=== PATIENT | female | born 1945 | race Caucasian/White ===

== ENCOUNTER 2017-09-29 16:05 | Emergency (ER) | payer MEDICARE, MEDICAID ==
[2017-09-29 16:05] VITALS: BMI 40.6
[2017-09-29 16:40] VITALS: TEMP 98.2
[2017-09-29 17:05] VITALS: RESP 18
--- NOTE | 2017-09-29 18:22 | ED PDOC ---
Arrival/HPI - General Chief Complaint: Female Genitourinary Time Seen by Provider: 09/29/17 17:03 Historian: Patient, Family, Media Analyst (son), Other - History of Present Illness Narrative History of Present Illness (Text): pt with 2wks ago right knee surgery, and now with urinary burning/discomfort with mild blood in urine but not in vagina and without vaginal discharge. Not sexually active. otherwise without any nausea/vomiting/headache/dizziness/ difficulty breathing/chest pain/abdomen pain/numbness/tingling. at baseline with right lower leg without redness or calf discomfort or unusual change in swelling. 09/29/17 18:19 Past Medical History - Provider Review Nursing Documentation Reviewed: Yes - Travel History Have you recently traveled outside [place] w/in the past 3 mons?: No - Infectious Disease Hx of Infectious Diseases: None - Reproductive Menopause: Yes - Cardiac Hx Hypertension: Yes - Pulmonary Hx Respiratory Disorders: No - HEENT Hx HEENT Disorder: No - Renal Hx Renal Disorder: No - Endocrine/Metabolic Hx Endocrine Disorders: No - Hematological/Oncological Hx Blood Disorders: No - Integumentary Hx Dermatological Disorder: No - Musculoskeletal/Rheumatological Hx Arthritis: Yes Hx Falls: No - Gastrointestinal Hx Gastrointestinal Disorders: No - Genitourinary/Gynecological Hx Genitourinary Disorders: No - Psychiatric Hx Psychophysiologic Disorder: No Hx Substance Use: No - Surgical History Hx Cholecystectomy: Yes Hx Hysterectomy: Yes - Anesthesia Hx Anesthesia: No Hx Anesthesia Reactions: No Hx Malignant Hyperthermia: No - Suicidal Assessment Feels Threatened In Home Enviroment: No Family/Social History - Physician Review Nursing Documentation Reviewed: Yes Family/Social History: No Known Family HX Smoking Status: Unknown If Ever Smoked Hx Alcohol Use: Yes Hx Substance Use: No Hx Substance Use Treatment: No Allergies/Home Meds Allergies/Adverse Reactions: Allergies No Known Allergies Allergy (Unverified 11/04/14 19:37) Home Medications: Home Meds Medication Instructions Recorded Confirmed Aspirin [Aspirin] 81 mg PO DAILY 11/04/14 09/29/17 Ciprofloxacin [Cipro] 500 mg PO BID 09/29/17 09/29/17 Hctz 12.5 12.5 mg PO DAILY 09/29/17 09/29/17 Losartan Potassium [Cozaar] 100 mg PO DAILY 09/29/17 09/29/17 traMADol [Ultram] 50 mg PO PRN PRN 09/29/17 09/29/17 Review of Systems - Review of Systems Constitutional: Normal Eyes: Normal ENT: Normal Respiratory: Normal Cardiovascular: Normal Gastrointestinal: Normal Genitourinary Female: Dysuria, Frequency, Hematuria. absent: Normal, Urine Output Changes, Vaginal Bleeding, Vaginal Discharge, Other Musculoskeletal: Other (right knee s/p surgery) Skin: Normal Neurological: Normal Endocrine: Normal Hemo/Lymphatic: Normal Psychiatric: Normal Physical Exam Vital Signs Reviewed: Yes Vital Signs Temp Pulse Resp BP Pulse Ox 09/29/17 17:04 69 18 124/61 98 09/29/17 16:27 98.2 F 72 16 126/69 100 Temperature: Afebrile Blood Pressure: Hypertensive Pulse: Regular Respiratory Rate: Normal Appearance: Positive for: Well-Appearing, Non-Toxic, Comfortable Pain Distress: None Mental Status: Positive for: Alert and Oriented X 3 - Systems Exam Head: Present: Atraumatic, Normocephalic Pupils: Present: PERRL Extroacular Muscles: Present: EOMI Conjunctiva: Present: Normal Ears: Present: Normal Mouth: Present: Moist Mucous Membranes Pharnyx: Present: Normal Nose (External): Present: Atraumatic Nose (Internal): Present: Normal Inspection Neck: Present: Normal Range of Motion Respiratory/Chest: Present: Clear to Auscultation, Good Air Exchange Cardiovascular: Present: Regular Rate and Rhythm Breast/Axillary: No: Axillary Lymphad, Discoloration, Erythema, Fluctuance, Masses, Nipple Discharge, Other, Swelling, Symmetrical, Tender to Palpation Back: Present: Normal Inspection Upper Extremity: Present: Normal Inspection Lower Extremity: Present: Other (right lower leg knee with mild swelling wo erythema/fluctuance/crepitus, sutures c/d/i.) Neurological: Present: GCS=15, CN II-XII Intact, Speech Normal, Motor Func Grossly Intact Skin: Present: Warm Psychiatric: Present: Alert, Oriented x 3, Normal Insight, Normal Concentration Medical Decision Making ED Course and Treatment: pt with 2wks ago right knee surgery, and now with urinary burning/discomfort with mild blood in urine but not in vagina and without vaginal discharge. Not sexually active. otherwise without any nausea/vomiting/headache/dizziness/ difficulty breathing/chest pain/abdomen pain/numbness/tingling. at baseline with right lower leg without redness or calf discomfort or unusual change in swelling. You were otherwise breathing easily, smiling with your son, good strength/sensation, walking with cane, clear lungs, no abdomen tenderness or back tenderness, right knee stable from surgery without sign of infection or calf discomfort, no fever temp 98.2, stable heart rate 72, stable breathing rate 16, excellent oxygen level 100% room air, elevated blood pressure 126/69 which we recommend repeat in 2-3 days primary care office to determine further treatment, you have urine test with infection, macrobid and pyridium done in the ED with improvement, counselled to drink lots of fluids and cranberry juice and thus discharged home with son. 1. Recommend macrobid as directed for urine infection control. 2. Recommend pyridium as dircted for urine dicomfort treatment. 3. Recommend follow-up primary care 2-3 days to review symptoms, get final urine culture report to tailor antibiotics. 4. If any worsening pain, fever, chills, nausea, vomiting, difficulty breathing, numbness, loss of limb function, pain with urination or any medical condition then return to the ED. 09/29/17 18:23 09/29/17 19:53 - Lab Interpretations Lab Results: Lab Results 09/29/17 17:20: Urine Color Yellow, Urine Appearance Cloudy, Urine pH 7.0, Ur Specific [place] 1.020, Urine Protein Trace H, Urine Glucose (UA) Negative, Urine Ketones Negative, Urine Blood Moderate H, Urine Nitrate Positive H, Urine Bilirubin Negative, Urine Urobilinogen 0.2, Ur Leukocyte Esterase Small H, Urine RBC 5 - 10, Urine WBC Tntc, Ur Epithelial Cells 6 - 8, Urine Bacteria Mod - Medication Orders Current Medication Orders: Nitrofurantoin Macrocrystals (Macrobid) 100 mg PO ONCE ONE Stop: 09/29/17 19:52 Phenazopyridine HCl (Pyridium) 200 mg PO STAT STA Stop: 09/29/17 19:53 Disposition/Present on Arrival - Present on Arrival Any Indicators Present on Arrival: No History of DVT/PE: No History of Uncontrolled Diabetes: No Urinary Catheter: No History of Decub. Ulcer: No History Surgical Site Infection Following: None - Disposition Have Diagnosis and Disposition been Completed?: Yes Diagnosis: UTI (urinary tract infection) Disposition: HOME/ ROUTINE Disposition Time: 19:54 Patient Plan: Discharge Condition: IMPROVED Additional Instructions: pt with 2wks ago right knee surgery, and now with urinary burning/discomfort with mild blood in urine but not in vagina and without vaginal discharge. Not sexually active. otherwise without any nausea/vomiting/headache/dizziness/ difficulty breathing/chest pain/abdomen pain/numbness/tingling. at baseline with right lower leg without redness or calf discomfort or unusual change in swelling. You were otherwise breathing easily, smiling with your son, good strength/sensation, walking with cane, clear lungs, no abdomen tenderness or back tenderness, right knee stable from surgery without sign of infection or calf discomfort, no fever temp 98.2, stable heart rate 72, stable breathing rate 16, excellent oxygen level 100% room air, elevated blood pressure 126/69 which we recommend repeat in 2-3 days primary care office to determine further treatment, you have urine test with infection, macrobid and pyridium done in the ED with improvement, counselled to drink lots of fluids and cranberry juice and thus discharged home with son. 1. Recommend macrobid as directed for urine infection control. 2. Recommend pyridium as dircted for urine dicomfort treatment. 3. Recommend follow-up primary care 2-3 days to review symptoms, get final urine culture report to tailor antibiotics, referral to urology for protein in urine to ensure no complications. 4. If any worsening pain, fever, chills, nausea, vomiting, difficulty breathing, numbness, loss of limb function , pain with urination or any medical condition then return to the ED. Prescriptions: Nitrofurantoin Macrocrystals [Macrobid] 100 mg PO Q12 7 Days #14 cap Phenazopyridine HCl [Pyridium] 100 mg PO Q8 PRN 2 Days #6 tablet PRN Reason: urinary discomfort Referrals: Zach Khan MD [Primary Care Provider] - Follow up with primary Forms: An[employer] (Angolan)
[2017-09-29 18:41] LABS: URINE BILIRUBIN NEGATIVE (NEGATIVE); URINE BLOOD MODERATE (NEGATIVE); URINE GLUCOSE (UA) NEGATIVE (NEGATIVE); URINE KETONE NEGATIVE (NEGATIVE); URINE LEUKOCYTE ESTERASE SMALL Leu/uL (NEGATIVE); URINE PROTEIN TRACE mg/dL (<30 mg/dL); URINE UROBILINOGEN 0.2 E.U./dL (<1 E.U./dL)
[2017-09-29 18:59] LABS: URINE COLOR YELLOW (YELLOW)
[2017-09-29 19:00] LABS: URINE APPEARANCE CLOUDY (CLEAR)
[2017-09-29 19:02] LABS: URINE BACTERIA MOD (NEG); URINE WBC TNTC /hpf (0-6)
[2017-09-29 20:52] VITALS: BP 127/70; PULSE 75; O2SAT 99
== END 2017-09-29 20:35 | disposition home or self-care (01) ==
LOC: ED 16:05
DX: N39.0 Urinary tract infection, site not specified (principal)

== ENCOUNTER 2018-10-02 03:54 | Emergency (ER) | payer MEDICARE, MEDICAID ==
[2018-10-02 04:09] VITALS: BMI 34.7
--- NOTE | 2018-10-02 04:13 | ED PDOC ---
Arrival/HPI - General Historian: Patient, Family - History of Present Illness Narrative History of Present Illness (Text): 10/02/18 04:08 73 year old Ecuadorean speaking female, whose past medical history includes hypertension, knee surgery, appendectomy and hysterectomy, presents to the emergency department accompanied by family for complaints of worsening right flank pain that radiates to the right suprapubic area for the past 1 week. Patient reports intermittent pain, but states the pain is worse with movement. Patient took two Advil 30 minutes ago with no relief. She reports similar pain in the past and was told it was muscular inflammation. Patient denies any fall or trauma. Patient is an occasional drinker and occasional smoker. Patient denies any fever, chills, chest pain, shortness of breath, nausea, vomiting, diarrhea, urinary symptoms, vaginal discharge, neck pain, headache, dizziness, rash or any other complaints. PMD: Dr. Bill Serrano Time/Duration: 1 week Symptom Course: Worsening Activities at Onset: Light Context: Home Past Medical History - Provider Review Nursing Documentation Reviewed: Yes - Infectious Disease Hx of Infectious Diseases: None - Cardiac Hx Hypertension: Yes - Pulmonary Hx Respiratory Disorders: No - HEENT Hx HEENT Disorder: No - Renal Hx Renal Disorder: No - Endocrine/Metabolic Hx Endocrine Disorders: No - Hematological/Oncological Hx Blood Disorders: No - Integumentary Hx Dermatological Disorder: No - Musculoskeletal/Rheumatological Hx Arthritis: Yes Hx Falls: No - Gastrointestinal Hx Gastrointestinal Disorders: No - Genitourinary/Gynecological Hx Genitourinary Disorders: No - Psychiatric Hx Psychophysiologic Disorder: No Hx Substance Use: No - Surgical History Hx Cholecystectomy: Yes Hx Hysterectomy: Yes - Anesthesia Hx Anesthesia: No Hx Anesthesia Reactions: No Hx Malignant Hyperthermia: No - Suicidal Assessment Feels Threatened In Home Enviroment: No Family/Social History - Physician Review Nursing Documentation Reviewed: Yes Family/Social History: No Known Family HX Smoking Status: Current Some Days Smoker Hx Alcohol Use: Yes Hx Substance Use: No Hx Substance Use Treatment: No Allergies/Home Meds Allergies/Adverse Reactions: Allergies No Known Allergies Allergy (Unverified 10/02/18 04:07) Home Medications: Home Meds Medication Instructions Recorded Confirmed Losartan Potassium [Cozaar] 100 mg PO DAILY 09/29/17 10/02/18 Donepezil HCl [Aricept] 5 mg PO DAILY 10/02/18 10/02/18 Memantine HCl 5 mg PO BID 10/02/18 10/02/18 metFORMIN [glucOPHAGE] 500 mg PO DAILY 10/02/18 10/02/18 Review of Systems - Physician Review All systems were reviewed & negative as marked: Yes - Review of Systems Constitutional: absent: Fevers, Other (Chills) Respiratory: absent: SOB Cardiovascular: absent: Chest Pain Gastrointestinal: Abdominal Pain. absent: Diarrhea, Nausea, Vomiting Genitourinary Female: absent: Dysuria, Frequency, Hematuria Musculoskeletal: Back Pain. absent: Neck Pain Neurological: absent: Headache, Dizziness Physical Exam Vital Signs Reviewed: Yes Appearance: Positive for: Well-Appearing, Non-Toxic, Comfortable Pain Distress: None Mental Status: Positive for: Alert and Oriented X 3 - Systems Exam Head: Present: Atraumatic, Normocephalic Pupils: Present: PERRL Extroacular Muscles: Present: EOMI Conjunctiva: Present: Normal Mouth: Present: Moist Mucous Membranes Neck: Present: Normal Range of Motion. No: Meningeal Signs, MIDLINE TENDERNESS Respiratory/Chest: Present: Clear to Auscultation, Good Air Exchange. No: Respiratory Distress, Accessory Muscle Use Cardiovascular: Present: Regular Rate and Rhythm, Normal S1, S2. No: Murmurs Abdomen: Present: Tenderness (right suprapubic tenderness and right flank pain), Normal Bowel Sounds. No: Distention, Peritoneal Signs Back: Present: Normal Inspection, CVA Tenderness (R), Pain with Leg Raise. No: Midline Tenderness, Paraspinal Tenderness Upper Extremity: Present: Normal Inspection, Normal ROM, Neurovascularly Intact. No: Cyanosis, Edema Lower Extremity: Present: Normal Inspection, NORMAL PULSES, Normal ROM, Neurovascularly Intact. No: Edema, CALF TENDERNESS, Samina's Sign Neurological: Present: GCS=15, CN II-XII Intact, Speech Normal, Motor Func Grossly Intact, Normal Cerebellar Funct Skin: Present: Warm, Dry, Normal Color. No: Rashes Psychiatric: Present: Alert, Oriented x 3, Normal Insight, Normal Concentration Medical Decision Making ED Course and Treatment: Impression: 73 year old female w/ hx of appendectomy, previous muscular pain presents complaining of worsening right flank pain radiating to the right suprapubic area for the past 1 week. R Flank pain on exam reproducible to palpation. No warmth or redness to L hip. No rash noted on Flank. No chest pain or sob. Likely muscle spasm vs kidneys tone. Mild suprapubic tenderness on exam. No enuresis or encoparesis. No saddle anesthesia. No vertebral tenderness. No hx of afib. No hx of IVDU. Plan: -- CT Abd and Pelvis w/o contrast -- EKG -- Labs -- Flexeril -- Urinalysis -- Reassess and disposition Progress Notes: 10/02/18 05:47 labs, urine unremarkable pending CT result pt in NAD, noted improvement of pain. 10/02/18 05:58 EK, NSR, No STEMI 10/02/18 06:11 CT resulted: IMPRESSION: 1. No acute pathology. 2. There is diffuse diverticulosis noted involving descending and sigmoid colon. No evidence of acute diverticulitis. 3. There are diffusely increased severe interstitial lung markings with conflu ence most consistent with pulmonary fibrosis. Consider follow up with Chest CT. Electronically signed on Oct 02, 2018 6:08:33 AM EST by: Dom Garcia M.D., YONIS Certified By [employer] [facility] Fellowship Trained MRI and CT Specialist No diverticulitis on exam. Likely MSK pain. No SOB. Lungs CTA b/l- speaking in full sentences in NAD. Likely MSK pain. Reassessed- shared findings pt in NAD, pain improved Likely msk strain instructed to f/u w/ pulm and GI regarding findings as well as PMD. She is agreeable to plan. - Lab Interpretations I have reviewed the lab results: Yes - EKG Interpretation Interpreted by ED Physician: Yes Type: 12 lead EKG - Scribe Statement The provider has reviewed the documentation as recorded by the Asad Langford Provider Scribe Attestation: All medical record entries made by the Asad were at my direction and personally dictated by me. I have reviewed the chart and agree that the record accurately reflects my personal performance of the history, physical exam, medical decision making, and the department course for this patient. I have also personally directed, reviewed, and agree with the discharge instructions and disposition. Disposition/Present on Arrival - Present on Arrival Any Indicators Present on Arrival: No History of DVT/PE: No History of Uncontrolled Diabetes: No Urinary Catheter: No History Surgical Site Infection Following: None - Disposition Have Diagnosis and Disposition been Completed?: Yes Diagnosis: Muscular pain, Flank pain, Diverticulosis, Pulmonary fibrosis Disposition: HOME/ ROUTINE Disposition Time: 06:18 Patient Problems: Current Active Problems Problem Status Onset Diverticulosis Acute Flank pain Acute Muscular pain Acute Pulmonary fibrosis Acute Condition: GOOD Discharge Instructions (ExitCare): Low Back Pain in Adults, Diverticulosis (DC) Print Language: BOLIVIAN Additional Instructions: SEE YOUR PRIMARY DOCTOR FOR YOU BACK PAIN ./ SPASMS. RETURN IF LOSS OF BOWEL OR BLADDER CONTROL OR IF YOU CANT FEEL IN BETWEEN YOU LEGS. SEE A PULMONOGIST FOR YOUR PULMONARY FIBROSIS SEE A STOMACH DOCTOR FOR YOUR DIVERTICULOSIS DONOVAN TRIPP, thank you for letting us take care of you today. Your provider was Ernesto [place] and you were treated for HIP PAIN. The emergency medical care you received today was directed at your acute symptoms. If you were prescribed any medication, please fill it and take as directed. It may take several days for your symptoms to resolve. Return to the Emergency Department if your symptoms worsen, do not improve, or if you have any other problems. Please contact your doctor or call one of the physicians/clinics you have been referred to that are listed on the Patient Visit Information form that is included in your discharge packet. Bring any paperwork you were given at discharge with you along with any medications you are taking to your follow up visit. Our treatment cannot replace ongoing medical care by a primary care provider outside of the emergency department. Thank you for allowing the [facility] team to be part of your care today. If you had an X-Ray or CT scan: A Radiologist will review the ED reading if any change in treatment is needed we will contact you. If you had a blood, urine, or wound culture: It will take several days for the results, if any change in treatment is needed we will contact you. If you had an STI test: It will take 48 hours for the results. Please call after 1 week if you have not heard back. Prescriptions: Cyclobenzaprine [Flexeril] 5 mg PO Q12H PRN 4 Days #8 tab PRN Reason: Pain, Moderate (4-7) Referrals: Jesus Wilder [Family Provider] - Follow up with primary [facility] [Outside] - Follow up with primary [facility] [Outside] - Follow up with primary [facility] [Outside] - Follow up with primary Oneal Vázquez MD [Staff Provider] - Follow up with primary James Ramos MD [Staff Provider] - Follow up with primary
[2018-10-02 04:48] VITALS: TEMP 97.1; O2SAT 100
[2018-10-02 04:48] LABS: BASO # 0.03 K/mm3 (0.0-2.0); BASO % 0.4 % (0.0-3.0); EOS # 0.2 (0.0-0.7); EOS % 1.8 % (1.5-5.0); HEMOGLOBIN 12.3 g/dL (12.0-16.0); LYMPH # 3.2 (1.2-3.4); LYMPH % 38.7 % (22.0-35.0); MEAN CELL VOLUME 91.5 fl (80.0-105.0); MEAN CORPUSCULAR HGB CONC 32.8 g/dl (31.0-37.0); MONO # 0.8 (0.1-0.6); MONO % 10.1 % (1.0-6.0); RBC 4.1 10^6/uL (3.5-6.1); RED CELL DISTRIBUTION WIDTH 15.7 % (11.5-14.5); WHITE BLOOD COUNT 8.2 10^3/uL (4.5-11.0)
[2018-10-02 04:53] LABS: ALT/SGPT 24 U/L (7-56); AST/SGOT 20 U/L (14-36); BLOOD UREA NITROGEN 26 mg/dL (7-21); CALCIUM 8.6 mg/dL (8.4-10.5); GFR NON-AFRICAN AMERICAN > 60; LIPASE 146 U/L (23-300)
[2018-10-02 04:57] LABS: PH,URINE 5.5 (4.7-8.0); URINE BILIRUBIN NEGATIVE (NEGATIVE); URINE BLOOD NEGATIVE (NEGATIVE); URINE GLUCOSE (UA) NEGATIVE (NEGATIVE); URINE LEUKOCYTE ESTERASE NEGATIVE Leu/uL (NEGATIVE); URINE PROTEIN NEGATIVE mg/dL (<30 mg/dL); URINE UROBILINOGEN 0.2 E.U./dL (<1 E.U./dL)
[2018-10-02 05:04] LABS: URINE APPEARANCE SLIGHT-CLOUDY (CLEAR); URINE COLOR YELLOW (YELLOW)
[2018-10-02 06:45] VITALS: BP 130/75; PULSE 62; RESP 17
--- NOTE | 2018-10-02 09:35 | CARD ---
APPROVED REPORT Date of service: 10/02/2018 EKG Measurement Heart [id number] <Conclusion> Normal sinus rhythm NSSTW changes
--- NOTE | 2018-10-02 11:53 | CT ---
Date of service: 10/02/2018 PROCEDURE: CT Abdomen and Pelvis without intravenous contrast HISTORY: Right flank pain. Rule calculus disease suspected. COMPARISON: None. TECHNIQUE: Unenhanced. Neither IV nor oral contrast administered Radiation dose: Total exam DLP = 693.41 mGy-cm. This CT exam was performed using one or more of the following dose reduction techniques: Automated exposure control, adjustment of the mA and/or kV according to patient size, and/or use of iterative reconstruction technique. FINDINGS: LOWER THORAX: Incompletely visualized emphysematous changes. No nodules, masses or infiltrates noted. LIVER: Unremarkable. No gross lesion or ductal dilatation. GALLBLADDER AND BILE DUCTS: Status post cholecystectomy. No abnormality is seen in the gallbladder fossa. PANCREAS: Unremarkable. No gross lesion or ductal dilatation. SPLEEN: Unremarkable. ADRENALS: Unremarkable. No mass. KIDNEYS AND URETERS: Unremarkable. No hydronephrosis. No solid mass. VASCULATURE: Non aneurysmal aorta. Atherosclerotic calcification and mural plaque present. Findings are seen throughout the aorta BOWEL: Diverticulosis without an acute inflammatory component or other associated pathologic process. APPENDIX: Unremarkable. Normal appendix. PERITONEUM: Unremarkable. No free fluid. No free air. LYMPH NODES: Unremarkable. No enlarged lymph nodes. BLADDER: Unremarkable. REPRODUCTIVE: Prior hysterectomy. BONES: No acute fracture. OTHER FINDINGS: None. IMPRESSION: No acute findings related to/ accounting for the clinical presentation. Additional benign and/or incidental findings described above. Concordant results (preliminary interpretation) provided by [facility] Records. Procedure Completed: 05:31. Preliminary Report: Dictated and Authenticated: 06:08. Final Interpretation: 11:50.
== END 2018-10-02 06:40 | disposition home or self-care (01) ==
LOC: ED 03:54
DX: K57.90 Diverticulosis of intestine, part unspecified, without perforation or abscess without bleeding (principal); J84.10 Pulmonary fibrosis, unspecified; M79.10 Myalgia, unspecified site; R10.9 Unspecified abdominal pain; I10 Essential (primary) hypertension; F17.210 Nicotine dependence, cigarettes, uncomplicated